=== PATIENT | male | born 1975 | race Caucasian/White ===

== ENCOUNTER 2023-01-28 09:39 | Outpatient (CLI) | payer SELFPAY ==
--- NOTE | 2023-01-28 10:49 | W.ANESCHARGE ---
Anesthesia Charges Start Date/Time Anesthesia Start Date: 01/28/23 Anesthesia Start Time: 10:11 Stop Date/Time Anesthesia Stop Date: 01/28/23 Anesthesia Stop Time: 10:46
--- NOTE | 2023-01-28 10:59 | W.ANESCHARGE ---
Anesthesia Charges Start Date/Time Anesthesia Start Date: 01/28/23 Anesthesia Start Time: 10:11 Stop Date/Time Anesthesia Stop Date: 01/28/23 Anesthesia Stop Time: 10:46
== END 2023-01-28 09:40 | disposition home or self-care (01) ==
LOC: OP CLINIC 09:40
PROVIDERS: PCP Family Medicine; Visit Provider Surgery
DX: Z12.11 Encounter for screening for malignant neoplasm of colon (principal); K63.5 Polyp of colon; Z83.71 Family history of colonic polyps
CPT/HCPCS: 00811; 45385; 88305; J2704

== ENCOUNTER 2024-02-01 20:58 | Outpatient (CLI) | payer OTHER, SELFPAY ==
--- NOTE | 2024-02-09 13:45 | W.PM.SLEEP ---
Sleep Study Details Details Interpreting Provider: Edita Date of Sleep Study: 02/01/24 Sleep Study Details: STUDY TYPE:? Hospital-based attended ? BMI:? 32.8 ORDERING PROVIDER:? Nita INDICATION:? Concern about sleep apnea ? SLEEP SUMMARY:? Total sleep time 381 minutes RESPIRATORY SUMMARY:? Mean oxygen awake 94 asleep 94, minimum 89 AHI 15.7 per rule 1A guideline, 5.2 per CMS guideline Supine AHI 29.2, nonsupine 5.3 Supine REM AHI 20.5 PERIODIC LIMB MOVEMENTS OF SLEEP:? None CARDIAC:? Awake 63 asleep 56 no arrhythmias noted IMPRESSION:? Moderate obstructive sleep apnea with supine position dependency RECOMMENDATION: Treatment options include CPAP dental appliance and/or airway expansion surgery.
== END 2024-02-01 20:59 | disposition home or self-care (01) ==
LOC: SLEEP 20:59
PROVIDERS: PCP Family Medicine; Visit Provider Otolaryngology
DX: G47.33 Obstructive sleep apnea (adult) (pediatric) (principal)
CPT/HCPCS: 95810